=== PATIENT | female | born 1965 | race Caucasian/White ===

== ENCOUNTER 2019-12-28 15:42 | Emergency (ER) | payer OTHER ==
[~2019-12-28] VITALS: Ht 157.5 cm; Wt 48.6 kg
[2019-12-28] MEDS ORDERED: cloNIDine HCL 0.1 MG TABLET ONE (16:22)
[2019-12-28 16:25] LABS: BASO # 0.1 x10^3/uL (0.0-0.2); BASO % 1 % (0-3); EOS # 0.2 x10^3/uL (0.0-0.7); EOS % 3 % (0-3); HEMATOCRIT 47.1 % (36.0-47.0); HEMOGLOBIN 15.7 g/dL (12.0-15.5); LYMPH # 1.5 x10^3/uL (1.0-4.8); LYMPH % 20 % (24-48); MEAN CORPUSCULAR HEMOGLOBIN 31 pg (25-35); MEAN CORPUSCULAR HGB CONC 33 g/dL (31-37); MEAN CORPUSCULAR VOLUME 92 fL (79-100); MONO # 0.5 x10^3/uL (0.0-1.1); MONO % 6 % (0-9); NEUT # 5.4 x10^3uL (1.8-7.7); NEUT % 71 % (31-73); PLATELET COUNT 209 x10^3/uL (140-400); RED BLOOD COUNT 5.13 x10^6/uL (3.50-5.40); RED CELL DISTRIBUTION WIDTH 13.5 % (11.5-14.5); WHITE BLOOD COUNT 7.7 x10^3/uL (4.0-11.0)
[2019-12-28 16:35] LABS: CALCIUM 9.4 mg/dL (8.5-10.1); CREATININE 0.7 mg/dL (0.6-1.0); GFR 87.9; POTASSIUM 3.5 mmol/L (3.5-5.1)
[2019-12-28 16:40] LABS: ALBUMIN 4.3 g/dL (3.4-5.0); ALBUMIN/GLOBULIN RATIO 1.1 (1.0-1.7); TOTAL BILIRUBIN 0.2 mg/dL (0.2-1.0); TOTAL PROTEIN 8.3 g/dL (6.4-8.2)
[2019-12-28 16:48] LABS: ACETAMIN < 2.0 mcg/mL (10-30); ETHANOL < 10 mg/dL (0-10); SALIC < 2.8 mg/dL (2.8-20.0)
[2019-12-28] MEDS ORDERED: cloNIDine HCL 0.1 MG TABLET PO ONE (17:00)
[2019-12-28 17:04] LABS: AMPHETAMINE/METHAMPHETAMINE NEG (NEG); BARBITURATES NEG (NEG); BENZODIAZEPINES NEG (NEG); CANNABINOIDS NEG (NEG); COCAINE NEG (NEG); METHADONE NEG (NEG); OPIATES NEG (NEG); PHENCYCLIDINE NEG (NEG)
[2019-12-28 17:09] LABS: BILIRUBIN,URINE NEG (NEG); CLARITY,URINE CLEAR; COLOR,URINE YELLOW; GLUCOSE,URINE NEG (NEG); NITRITE,URINE NEG (NEG); UROBILINOGEN,URINE 0.2 mg/dL (0.2 mg/dL)
[2019-12-28 17:10] LABS: BACTERIA,URINE 0 /HPF (0-FEW); RBC,URINE RARE /HPF (0-2); SQUAMOUS EPITHELIAL CELL,UR OCC /LPF; WBC,URINE RARE /HPF (0-4)
--- NOTE | 2019-12-28 17:28 | PHYS DOC ---
Past History Past Medical History: High Cholesterol, Hypertension (LAMSERGIONEWSERGIO Rodriguez DO) Past Medical History: High Cholesterol, Hypertension (HORACE GUERRA DO) Past Surgical History: No Surgical History (LAMSERGIONEWSERGIO Rodriguez DO) Past Surgical History: No Surgical History (HORACE GUERRA DO) Alcohol Use: Sober (NEW HELLER Michael ) Smoking: Quit Greater Than 1 Year Alcohol Use: Sober Drug Use: None (HORACE GUERRA DO) General Adult EDM: Chief Complaint: SUICIDAL IDEATION HPI: HPI: Patient is a 54-year-old female presenting to the ED with a chief complaint of depression and suicidal ideation. Patient states that her boyfriend does not feel well and so she is depressed. Patient states that she tried to commit suicide by suffocating herself but her daughter stopped her. Patient states that her daughter brought her to the ED. Patient states that in the past she has slept with a knife next to her. Patient denies alcohol use, drug use, smoking. Patient also states that she is supposed to take blood pressure medication but has not taken it because she does not care if she lives or not. (NEW HELLER Michael QUINONES) Review of Systems: Review of Systems: Constitutional: Denies fever or chills Eyes: Denies change in visual acuity HENT: Denies nasal congestion or sore throat Respiratory: Denies cough or shortness of breath Cardiovascular: Denies chest pain or edema GI: Denies abdominal pain, nausea, vomiting, bloody stools or diarrhea : Denies dysuria Musculoskeletal: Denies back pain or joint pain Psychiatric: Complains of depression and suicidal ideation (MARIA ISABELAUUGSTINNEWSERGIO Rodriguez DO) Heart Score: Risk Factors: Risk Factors: DM, Current or recent (<one month) smoker, HTN, HLP, family history of CAD, obesity. Risk Scores: Score 0 - 3: 2.5% MACE over next 6 weeks - Discharge Home Score 4 - 6: 20.3% MACE over next 6 weeks - Admit for Clinical Observation Score 7 - 10: 72.7% MACE over next 6 weeks - Early Invasive Strategies (MARIA ISABELAUGUSTINNEWSERGIO Rodriguez DO) Current Medications: Current Meds: Current Medications Medications (Trade) Dose Ordered Sig/Tiarra Start Time Stop Time Status Last Admin Dose Admin Clonidine HCl (Catapres) 0.1 mg STK-MED ONCE 12/28/19 16:22 12/28/19 16:22 DC (NEW HELLER DO) Allergies: Allergies: Allergies Coded Allergies Type Severity Reaction Last Updated Verified Penicillins Allergy Unknown 12/28/19 Yes (NEW HELLER DO) Physical Exam: PE: Constitutional: Well developed, well nourished, no acute distress, non-toxic appearance. [] HENT: Normocephalic, atraumatic Eyes: EOMI Neck: Normal range of motion, Supple Cardiovascular:Heart rate regular rhythm Lungs & Thorax: Bilateral breath sounds clear to auscultation [] Abdomen: Bowel sounds normal, soft, no tenderness Extremities: No tenderness, ROM intact Neurologic: Alert and oriented X 3 Psych: Patient endorses suicidal ideation (NEW HELLER DO) PE: Constitutional: Well developed, well nourished, no acute distress, non-toxic appearance HENT: Normocephalic, atraumatic Eyes: Conjunctiva normal, no discharge Neck: Normal range of motion, no tenderness, supple Lungs & Thorax: No respiratory distress, equal chest rise and fall Skin: Warm, dry, no erythema, no rash Extremities: No tenderness, ROM intact, no edema Neurologic: Alert and oriented X 3, no focal deficits noted Psychologic: Affect flat, judgment abnormal, reports suicidal ideation (HORACE GUERRA DO) Current Patient Data: Labs: Laboratory Tests Test 12/28/19 16:08 12/28/19 16:21 White Blood Count 7.7 x10^3/uL (4.0-11.0) Red Blood Count 5.13 x10^6/uL (3.50-5.40) Hemoglobin 15.7 g/dL (12.0-15.5) H Hematocrit 47.1 % (36.0-47.0) H Mean Corpuscular Volume 92 fL (79-100) Mean Corpuscular Hemoglobin 31 pg (25-35) Mean Corpuscular Hemoglobin Concent 33 g/dL (31-37) Red Cell Distribution Width 13.5 % (11.5-14.5) Platelet Count 209 x10^3/uL (140-400) Neutrophils (%) (Auto) 71 % (31-73) Lymphocytes (%) (Auto) 20 % (24-48) L Monocytes (%) (Auto) 6 % (0-9) Eosinophils (%) (Auto) 3 % (0-3) Basophils (%) (Auto) 1 % (0-3) Neutrophils # (Auto) 5.4 x10^3uL (1.8-7.7) Lymphocytes # (Auto) 1.5 x10^3/uL (1.0-4.8) Monocytes # (Auto) 0.5 x10^3/uL (0.0-1.1) Eosinophils # (Auto) 0.2 x10^3/uL (0.0-0.7) Basophils # (Auto) 0.1 x10^3/uL (0.0-0.2) Sodium Level 136 mmol/L (136-145) Potassium Level 3.5 mmol/L (3.5-5.1) Chloride Level 101 mmol/L (98-107) Carbon Dioxide Level 29 mmol/L (21-32) Anion Gap 6 (6-14) Blood Urea Nitrogen 14 mg/dL (7-20) Creatinine 0.7 mg/dL (0.6-1.0) Estimated GFR (Cockcroft-Gault) 87.9 BUN/Creatinine Ratio 20 (6-20) Glucose Level 96 mg/dL (70-99) Calcium Level 9.4 mg/dL (8.5-10.1) Total Bilirubin 0.2 mg/dL (0.2-1.0) Aspartate Amino Transferase (AST) 20 U/L (15-37) Alanine Aminotransferase (ALT) 28 U/L (14-59) Alkaline Phosphatase 106 U/L (46-116) Total Protein 8.3 g/dL (6.4-8.2) H Albumin 4.3 g/dL (3.4-5.0) Albumin/Globulin Ratio 1.1 (1.0-1.7) Salicylates Level < 2.8 mg/dL (2.8-20.0) L Salicylate Last Dose Date Unk Salicylate Last Dose Time Unk Acetaminophen Level < 2.0 mcg/mL (10-30) L Acetaminophen Last Dose Date Unk Acetaminophen Last Dose Time Unk Ethyl Alcohol Level < 10 mg/dL (0-10) Urine Collection Type Unknown Urine Color Yellow Urine Clarity Clear Urine pH 7.0 Urine Specific [place] 1.015 Urine Protein Neg (NEG-TRACE) Urine Glucose (UA) Neg mg/dL (NEG) Urine Ketones (Stick) Neg mg/dL (NEG) Urine Blood Neg (NEG) Urine Nitrite Neg (NEG) Urine Bilirubin Neg (NEG) Urine Urobilinogen Dipstick 0.2 mg/dL (0.2 mg/dL) Urine Leukocyte Esterase Neg (NEG) Urine RBC Rare /HPF (0-2) Urine WBC Rare /HPF (0-4) Urine Squamous Epithelial Cells Occ /LPF Urine Bacteria 0 /HPF (0-FEW) Urine Opiates Screen Neg (NEG) Urine Methadone Screen Neg (NEG) Urine Barbiturates Neg (NEG) Urine Phencyclidine Screen Neg (NEG) Urine Amphetamine/Methamphetamine Neg (NEG) Urine Benzodiazepines Screen Neg (NEG) Urine Cocaine Screen Neg (NEG) Urine Cannabinoids Screen Neg (NEG) Urine Ethyl Alcohol Neg (NEG) Vital Signs: Vital Signs Date Time Temp Pulse Resp B/P (MAP) Pulse Ox O2 Delivery O2 Flow Rate FiO2 12/28/19 16:47 80 16 164/83 (110) 98 Room Air 12/28/19 16:04 97.9 (NEW HELLER DO) EKG: EKG: [] (NEW HELLER DO) Radiology/Procedures: Radiology/Procedures: [] (NEW HELLER DO) Course & Med Decision Making: Course & Med Decision Making Pertinent Labs reviewed. (See chart for details) Ordered medical clearance labs. Labs are within normal limits. UA does not show UTI. Patient is medically cleared for psychiatric evaluation. Discussed results and plan of care with patient. Patient care turned over to Dr Guerra at shift change. (NEW HELLER DO) Course & Med Decision Making 1800- Sign out received from Dr. Heller for patient with reported suicidal ideation. Patient medically cleared for psychiatric evaluation. Awaiting tele- psych evaluation. Labs reviewed. Patient seen and evaluated by myself. 2000- Tele psych assessment performed. Feeder Catcher Tobacco feels safe with patient discharge with safety plan. Patient stable for discharge with outpatient follow-up with PCP/Mental health. Discussed findings and plan with patient, who acknowledges understanding and agreement. (HORACE GUERRA DO) Calvin Disclaimer: Calivn Disclaimer: This electronic medical record was generated, in whole or in part, using a voice recognition dictation system. (NEW HELLER DO) Departure Departure: Impression: Primary Impression: Suicidal ideation Disposition: HOME/RESIDENCE PRIOR TO ADM Condition: STABLE Referrals: PCP,CHARLES (PCP) Patient Instructions: Suicidal Feelings, How to Help Yourself Justification of Admission: Justification of Admission: Justification of Admission Dx: N/A (HORACE GUERRA DO) NEW HELLER DO Dec 28, 2019 17:28 HORACE GUERRA DO Dec 28, 2019 18:41
[2019-12-28 20:50] VITALS: BP 136/65
== END 2019-12-28 20:59 | disposition home or self-care (01) ==
LOC: ER 15:42
DX: R45.851 Suicidal ideations (principal); E78.00 Pure hypercholesterolemia, unspecified; I10 Essential (primary) hypertension; Z87.891 Personal history of nicotine dependence; Z88.0 Allergy status to penicillin
CPT/HCPCS: 36415; 80053; 80307; 80329; 81001; 84443; 85025; 99283; G0480